=== PATIENT | male | born 1950 | race Caucasian/White ===

== ENCOUNTER 2021-01-19 04:36 | Inpatient (IN) | payer OTHER ==
[2021-01-18 12:42] VITALS: BMI 25.8
[2021-01-19] MEDS ORDERED: ERTAPENEM SODIUM 1 GM in SODIUM CHLORIDE 50 ML IVPB ONE (07:00)
[2021-01-19] MEDS ORDERED: ALVIMOPAN 12 MG CAP PO ONE ×2 (07:00→12:02)
[2021-01-19] MEDS ORDERED: ERTAPENEM SODIUM 1 GM VIAL ONE (12:02)
[2021-01-19] MEDS ORDERED: BUPIVACAINE LIPOSOME/PF (EXPAREL) 266 MG/20 ML VIAL ONE (12:14)
[2021-01-19] MEDS ORDERED: MIDAZOLAM HCL 2 MG/2 ML SINGLE DOSE VIAL ONE ×2 (12:15)
[2021-01-19] MEDS ORDERED: fentaNYL CITRATE 250 MCG/5 ML VIAL ONE (12:47)
[2021-01-19] MEDS ORDERED: ROCURONIUM BROMIDE 50 MG/5 ML SYRINGE ONE ×2 (12:47→15:38)
[2021-01-19] MEDS ORDERED: ERTAPENEM SODIUM 1 GM VIAL IVPB ONE (14:18)
[2021-01-19] MEDS ORDERED: EPHEDRINE SULFATE/0.9% NACL/PF 50 MG/10 ML SYRINGE NR ONE (15:31)
[2021-01-19] MEDS ORDERED: INDOCYANINE GREEN 25 MG/10 ML VIAL IVPUSH ONE (17:07)
[2021-01-19] MEDS ORDERED: ACETAMINOPHEN INJECTION 100 ML IVPB ONE (18:00)
[2021-01-19] MEDS ORDERED: SEVOFLURANE 250 ML BTL ONE (18:00)
[2021-01-19] MEDS ORDERED: DEXAMETHASONE SOD PHOSPHATE 4 MG/1 ML VIAL ONE (19:07)
[2021-01-19] MEDS ORDERED: PROPOFOL 20 ML ONE (19:13)
[2021-01-19] MEDS ORDERED: NEOSTIGMINE METHYLSULFATE 0.5 MG/ML - 10 ML MDV ONE (19:31)
[2021-01-19] MEDS ORDERED: GLYCOPYRROLATE 0.2 MG/1 ML VIAL ONE (19:31)
[2021-01-19] MEDS ORDERED: HYDROmorphone HCl 2 MG/ML VIAL ONE (20:48)
[2021-01-19] MEDS ORDERED: ONDANSETRON 4 MG/2 ML VIAL IVPUSH PRN (20:48)
[2021-01-19] MEDS ORDERED: HYDROmorphone HCl 2 MG/ML VIAL IVPUSH PRN (20:49)
[2021-01-19] MEDS: HYDROmorphone HCL/PF 1 MG/ML VIAL IVPUSH PRN ×2 (20:50→21:15)
[2021-01-19] MEDS: LACTATED RINGERS SOLUTION 1,000 ML IV SCH (21:30)
[2021-01-20] MEDS: CEFAZOLIN 2 GM/D5W 2 GM/50 ML ML IVPB SCH ×3 (02:30→18:20)
[2021-01-20] MEDS ORDERED: oxyCODONE HCL 5 MG TABLET PO PRN (07:54)
[2021-01-20] MEDS: oxyCODONE HCL 5 MG TABLET PO PRN ×2 (08:17→14:29)
[2021-01-20] MEDS ORDERED: PT OWN MED DRAWER 7, Y5N ONE ×2 (09:49→20:54)
[2021-01-20] MEDS: PANTOPRAZOLE SODIUM 40 MG VIAL IVPUSH SCH (09:54)
[2021-01-20] MEDS: metoPROLOL SUCCINATE 25 MG TAB.SR.24H (FP) PO SCH (09:54)
[2021-01-20] MEDS: ALVIMOPAN 12 MG CAP PO SCH ×2 (09:55→21:16)
[2021-01-20 10:41] LABS: BASO % 0.1 % (0-2.0); EOS % 0.1 % (0-4.5); HEMATOCRIT 40.8 % (35.4-49); HEMOGLOBIN 13.9 GM/dL (11.7-16.9); LYMPH % 8.3 % (8-40); MCH 30.1 pg (25.7-33.7); MCHC 33.9 g/dl (32.0-35.9); MEAN CELL VOLUME 88.6 fl (80-96); MEAN PLT VOLUME 7.7 fl (7.5-11.1); MONO % 9.8 % (3.8-10.2); NEUT % 81.7 % (42.8-82.8); PLATELET COUNT 171 K/MM3 (134-434); RBC 4.61 M/mm3 (4.00-5.60); RDW 13.5 % (11.9-15.9); WHITE BLOOD COUNT 12.8 K/mm3 (4.0-10.0)
[2021-01-20] MEDS: ENOXAPARIN NA (PORCINE) 40 MG/0.4 ML DISP.SYRIN SQ SCH (10:52)
[2021-01-20 11:59] LABS: BLOOD UREA NITROGEN 20.1 mg/dL (7-18); CALCIUM 8.3 mg/dL (8.5-10.1); CREATININE 0.9 mg/dL (0.55-1.3)
[2021-01-20] MEDS ORDERED: KETOROLAC TROMETHAMINE 15 MG/ML VIAL IVPUSH ONE (19:26)
[2021-01-20] MEDS ORDERED: ACETAMINOPHEN 1000 MG/100 ML VIAL (NON FORMULARY) IVPB PRN (19:27)
[2021-01-20] MEDS: MONTELUKAST NA 10 MG TABLET PO SCH (21:16)
[2021-01-20] MEDS: LACTATED RINGERS SOLUTION 1,000 ML IV SCH (21:17)
[2021-01-21] MEDS: LACTATED RINGERS SOLUTION 1,000 ML IV SCH ×3 (05:29→21:28)
[2021-01-21] MEDS: ACETAMINOPHEN 1000 MG/100 ML VIAL (NON FORMULARY) IVPB PRN ×2 (05:30→14:07)
[2021-01-21 09:11] LABS: BASO % 0.2 % (0-2.0); EOS % 0.2 % (0-4.5); HEMATOCRIT 36.9 % (35.4-49); HEMOGLOBIN 12.5 GM/dL (11.7-16.9); LYMPH % 12.8 % (8-40); MCH 29.9 pg (25.7-33.7); MCHC 33.8 g/dl (32.0-35.9); MEAN CELL VOLUME 88.4 fl (80-96); MEAN PLT VOLUME 7.7 fl (7.5-11.1); MONO % 9.7 % (3.8-10.2); NEUT % 77.1 % (42.8-82.8); PLATELET COUNT 155 K/MM3 (134-434); RBC 4.17 M/mm3 (4.00-5.60); RDW 13.5 % (11.9-15.9); WHITE BLOOD COUNT 11.5 K/mm3 (4.0-10.0)
[2021-01-21 09:14] LABS: CALCIUM 8.2 mg/dL (8.5-10.1)
[2021-01-21 09:15] LABS: ALBUMIN 3.2 g/dl (3.4-5.0); BLOOD UREA NITROGEN 15.1 mg/dL (7-18)
[2021-01-21 09:18] LABS: CREATININE 0.8 mg/dL (0.55-1.3)
[2021-01-21 09:20] LABS: TOT PROT 6.1 g/dl (6.4-8.2)
[2021-01-21] MEDS ORDERED: PT OWN MED DRAWER 7, Y5N ONE ×2 (10:34→21:13)
[2021-01-21] MEDS: ENOXAPARIN NA (PORCINE) 40 MG/0.4 ML DISP.SYRIN SQ SCH (10:37)
[2021-01-21] MEDS: ALVIMOPAN 12 MG CAP PO SCH ×2 (10:37→21:27)
[2021-01-21] MEDS: metoPROLOL SUCCINATE 25 MG TAB.SR.24H (FP) PO SCH (10:37)
[2021-01-21] MEDS: traMADol HCL 50 MG TABLET PO PRN (10:38)
[2021-01-21] MEDS: PANTOPRAZOLE SODIUM 40 MG VIAL IVPUSH SCH (10:38)
[2021-01-21] MEDS: oxyCODONE HCL 5 MG TABLET PO PRN (21:26)
[2021-01-21] MEDS: MONTELUKAST NA 10 MG TABLET PO SCH (21:27)
[2021-01-21] MEDS ORDERED: TAMSULOSIN HCL 0.4 MG CAP PO ONE (23:30)
[2021-01-21 23:33] LABS: EPI CELLS 5 /uL (0-25.1); HYALINE CASTS 0 /uL (0-3.1); PH,URINE 6.5 (5.0-8.0); URINE APPEARANCE CLEAR; URINE BACTERIA 1 /uL (0-1359); URINE BILIRUBIN NEGATIVE (NEGATIVE); URINE COLOR YELLOW; URINE GLUCOSE (UA) NEGATIVE (NEGATIVE); URINE KETONE TRACE (NEGATIVE); URINE LEUK ESTERASE NEGATIVE (NEGATIVE); URINE NITRITE NEGATIVE (NEGATIVE); URINE PROTEIN NEGATIVE (NEGATIVE); URINE RBC 599 /uL (0-23.9); URINE UROBILINOGEN 0.2 mg/dL (0.2-1.0); URINE WBC 25 /uL (0-25.8)
[2021-01-22] MEDS: traMADol HCL 50 MG TABLET PO PRN (03:14)
[2021-01-22] MEDS: LACTATED RINGERS SOLUTION 1,000 ML IV SCH ×2 (06:51→22:09)
[2021-01-22] MEDS ORDERED: PT OWN MED DRAWER 7, Y5N ONE ×2 (10:01→22:07)
[2021-01-22] MEDS: ALVIMOPAN 12 MG CAP PO SCH ×2 (10:09→22:12)
[2021-01-22] MEDS: PANTOPRAZOLE SODIUM 40 MG VIAL IVPUSH SCH (10:11)
[2021-01-22] MEDS: metoPROLOL SUCCINATE 25 MG TAB.SR.24H (FP) PO SCH (10:11)
[2021-01-22] MEDS: ENOXAPARIN NA (PORCINE) 40 MG/0.4 ML DISP.SYRIN SQ SCH (10:11)
[2021-01-22 14:20] LABS: BASO % 0.1 % (0-2.0); EOS % 0.1 % (0-4.5); HEMATOCRIT 38.7 % (35.4-49); HEMOGLOBIN 13.1 GM/dL (11.7-16.9); LYMPH % 10.1 % (8-40); MCH 29.9 pg (25.7-33.7); MCHC 33.8 g/dl (32.0-35.9); MEAN CELL VOLUME 88.5 fl (80-96); MEAN PLT VOLUME 7.7 fl (7.5-11.1); MONO % 10.4 % (3.8-10.2); NEUT % 79.3 % (42.8-82.8); PLATELET COUNT 170 K/MM3 (134-434); RBC 4.38 M/mm3 (4.00-5.60); RDW 13.6 % (11.9-15.9); WHITE BLOOD COUNT 12.2 K/mm3 (4.0-10.0)
[2021-01-22 14:51] LABS: ALBUMIN 3.5 g/dl (3.4-5.0); BLOOD UREA NITROGEN 20.3 mg/dL (7-18); CALCIUM 8.8 mg/dL (8.5-10.1)
[2021-01-22 14:55] LABS: BILIRUBIN,TOTAL 1.2 mg/dL (0.2-1); CREATININE 1.3 mg/dL (0.55-1.3)
[2021-01-22 14:57] LABS: TOT PROT 6.6 g/dl (6.4-8.2)
[2021-01-22] MEDS: MONTELUKAST NA 10 MG TABLET PO SCH (22:11)
[2021-01-23] MEDS ORDERED: PANTOPRAZOLE 40 MG TABLET PO ONE (08:09)
[2021-01-23 09:51] LABS: HEMATOCRIT 35.5 % (35.4-49); HEMOGLOBIN 12.2 GM/dL (11.7-16.9); MCH 30.4 pg (25.7-33.7); MCHC 34.3 g/dl (32.0-35.9); MEAN CELL VOLUME 88.7 fl (80-96); MEAN PLT VOLUME 7.8 fl (7.5-11.1); PLATELET COUNT 155 K/MM3 (134-434); RBC 4.01 M/mm3 (4.00-5.60); RDW 13.6 % (11.9-15.9)
[2021-01-23] MEDS ORDERED: PT OWN MED DRAWER 7, Y5N ONE ×2 (09:58→21:25)
[2021-01-23] MEDS: ALVIMOPAN 12 MG CAP PO SCH ×2 (10:03→21:27)
[2021-01-23] MEDS: metoPROLOL SUCCINATE 25 MG TAB.SR.24H (FP) PO SCH (10:03)
[2021-01-23] MEDS: ENOXAPARIN NA (PORCINE) 40 MG/0.4 ML DISP.SYRIN SQ SCH (10:03)
[2021-01-23 10:13] LABS: ALBUMIN 3.1 g/dl (3.4-5.0); BLOOD UREA NITROGEN 14.5 mg/dL (7-18); CALCIUM 8.2 mg/dL (8.5-10.1)
[2021-01-23 10:17] LABS: CREATININE 0.9 mg/dL (0.55-1.3)
[2021-01-23 10:20] LABS: BILIRUBIN,TOTAL 1.1 mg/dL (0.2-1)
[2021-01-23] MEDS ORDERED: POTASSIUM CHLORIDE ORAL LIQUID 20 MEQ/15 ML PO ONE (12:54)
[2021-01-23] MEDS: MONTELUKAST NA 10 MG TABLET PO SCH (21:27)
[2021-01-24] MEDS: TAMSULOSIN HCL 0.4 MG CAP PO SCH (08:50)
[2021-01-24 09:48] LABS: HEMATOCRIT 34.7 % (35.4-49); MCH 30.5 pg (25.7-33.7); MCHC 34.7 g/dl (32.0-35.9); MEAN CELL VOLUME 87.9 fl (80-96); MEAN PLT VOLUME 7.6 fl (7.5-11.1); PLATELET COUNT 185 K/MM3 (134-434); RBC 3.94 M/mm3 (4.00-5.60); RDW 13.5 % (11.9-15.9); WHITE BLOOD COUNT 8.6 K/mm3 (4.0-10.0)
[2021-01-24] MEDS: ENOXAPARIN NA (PORCINE) 40 MG/0.4 ML DISP.SYRIN SQ SCH (10:04)
[2021-01-24] MEDS: metoPROLOL SUCCINATE 25 MG TAB.SR.24H (FP) PO SCH (10:04)
[2021-01-24 10:13] LABS: ALBUMIN 3.2 g/dl (3.4-5.0); BLOOD UREA NITROGEN 13.9 mg/dL (7-18)
[2021-01-24 10:15] LABS: BILIRUBIN,TOTAL 1.2 mg/dL (0.2-1); CALCIUM 8.5 mg/dL (8.5-10.1); TOT PROT 6.3 g/dl (6.4-8.2)
[2021-01-24 10:16] LABS: CREATININE 0.9 mg/dL (0.55-1.3)
[2021-01-24] MEDS ORDERED: POTASSIUM CHLORIDE TABS 20 MEQ TABLET.ER (FP) PO ONE (10:31)
[2021-01-24 11:27] LABS: MAGNESIUM 1.9 mg/dL (1.8-2.4)
[2021-01-24] MEDS: MONTELUKAST NA 10 MG TABLET PO SCH (22:35)
[2021-01-25] MEDS: TAMSULOSIN HCL 0.4 MG CAP PO SCH (08:56)
[2021-01-25] MEDS: PANTOPRAZOLE 40 MG TABLET PO SCH (09:00)
[2021-01-25] MEDS: metoPROLOL SUCCINATE 25 MG TAB.SR.24H (FP) PO SCH (09:00)
[2021-01-25] MEDS: ENOXAPARIN NA (PORCINE) 40 MG/0.4 ML DISP.SYRIN SQ SCH (09:01)
[2021-01-25 10:15] LABS: BLOOD UREA NITROGEN 13.2 mg/dL (7-18)
[2021-01-25 10:16] LABS: CALCIUM 8.5 mg/dL (8.5-10.1)
[2021-01-25 10:18] LABS: CREATININE 0.8 mg/dL (0.55-1.3)
[2021-01-25] MEDS: LACTOBACILLUS ACIDOPHILUS 1 TABLET PO SCH (14:35)
[2021-01-25] MEDS: MONTELUKAST NA 10 MG TABLET PO SCH (21:19)
[2021-01-25] MEDS: ATORVASTATIN CA 20 MG TABLET (FP) PO SCH (21:19)
[2021-01-26] MEDS ORDERED: TAMSULOSIN HCL 0.4 MG CAP PO ONE (05:26)
[2021-01-26] MEDS: TAMSULOSIN HCL 0.4 MG CAP PO SCH (08:30)
[2021-01-26] MEDS: LACTOBACILLUS ACIDOPHILUS 1 TABLET PO SCH (09:01)
[2021-01-26] MEDS: metoPROLOL SUCCINATE 25 MG TAB.SR.24H (FP) PO SCH (09:01)
[2021-01-26] MEDS: ENOXAPARIN NA (PORCINE) 40 MG/0.4 ML DISP.SYRIN SQ SCH (09:01)
[2021-01-26] MEDS: PANTOPRAZOLE 40 MG TABLET PO SCH (09:01)
[2021-01-26] MEDS: DOCUSATE SODIUM 100 MG CAPSULE (FP) PO SCH ×2 (14:45→21:13)
[2021-01-26] MEDS: HYDROCORTISONE 2.5% TOPICAL CREAM 30 GM TUBE TP SCH (18:37)
[2021-01-26] MEDS: MONTELUKAST NA 10 MG TABLET PO SCH (21:13)
[2021-01-26] MEDS: ATORVASTATIN CA 20 MG TABLET (FP) PO SCH (21:13)
[2021-01-27] MEDS: DOCUSATE SODIUM 100 MG CAPSULE (FP) PO SCH ×2 (05:55→13:36)
[2021-01-27] MEDS: LACTOBACILLUS ACIDOPHILUS 1 TABLET PO SCH (09:34)
[2021-01-27] MEDS: PANTOPRAZOLE 40 MG TABLET PO SCH (09:34)
[2021-01-27] MEDS: metoPROLOL SUCCINATE 25 MG TAB.SR.24H (FP) PO SCH (09:34)
[2021-01-27] MEDS: HYDROCORTISONE 2.5% TOPICAL CREAM 30 GM TUBE TP SCH (09:34)
[2021-01-27 15:46] VITALS: BP 124/66; PULSE 72; TEMP 98.8
[2021-01-27] MEDS ORDERED: TAMSULOSIN HCL 0.4 MG CAP PO SCH (17:30)
== END 2021-01-27 17:35 | disposition home health service (06) | DRG 349 ==
LOC: J2C 04:36 → J6S 22:57
PROVIDERS: ADMIT Family Medicine; ATTEND Family Medicine
PROC: 8E0W8CZ Robotic Assisted Procedure of Trunk Region, Via Natural or Artificial Opening Endoscopic (ICD-10-PCS; 2021-01-19)
PROC: 0DBNFZZ Excision of Sigmoid Colon, Via Natural or Artificial Opening With Percutaneous Endoscopic Assistance (ICD-10-PCS; principal; 2021-01-19 13:00)
PROC: 0TH Urinary System, Insertion (ICD-10-PCS; 2021-01-24)
DX: K57.30 Diverticulosis of large intestine without perforation or abscess without bleeding (principal); D12.5 Benign neoplasm of sigmoid colon; K57.32 Diverticulitis of large intestine without perforation or abscess without bleeding; K63.9 Disease of intestine, unspecified; K21.9 Gastro-esophageal reflux disease without esophagitis; I10 Essential (primary) hypertension; N40.1 Benign prostatic hyperplasia with lower urinary tract symptoms; R33.8 Other retention of urine
CPT/HCPCS: 36415; 80048; 80053; 81003; 83735; 84484; 85025; 85027; 86850; 86900; 86901; 87086; 88304-TC; 88305-TC; 88307-TC; 93005; 93010; 94010; 94760; 97116-GP; 97161-GP; J0131

== ENCOUNTER 2024-02-25 04:20 | Day surgery (SDC) | payer OTHER ==
[2024-02-21 13:30] VITALS: BMI 25.8
[2024-02-25] MEDS ORDERED: ONDANSETRON 4 MG/2 ML VIAL ONE (11:40)
[2024-02-25] MEDS ORDERED: MIDAZOLAM HCL 2 MG/2 ML SINGLE DOSE VIAL ONE (11:40)
[2024-02-25 13:27] VITALS: BP 126/68; TEMP 97.7
[2024-02-25 13:34] VITALS: PULSE 68; RESP 18
== END 2024-02-25 13:34 | disposition home or self-care (01) ==
LOC: JASU-SURG 04:20
PROVIDERS: ATTEND Urology
PROC: 0TF3XZZ Fragmentation in Right Kidney Pelvis, External Approach (ICD-10-PCS; principal; 2024-02-25 12:30)
DX: N20.0 Calculus of kidney (principal)